=== PATIENT | female | born 1990 | race Caucasian/White ===

== ENCOUNTER 2021-06-23 14:07 | Outpatient (CLI) | payer MEDICAID, SELFPAY ==
--- NOTE | 2021-06-23 14:16 | MM_ITS ---
WS: [id number] BILATERAL DIGITAL DIAGNOSTIC MAMMOGRAM MAMMOGRAPHY WITH CAD CLINICAL INFORMATION: BREAST PAIN COMPARISON: None. TECHNIQUE: Bilateral CC, MLO, and ML views. FINDINGS: The breasts are composed of heterogeneous fibroglandular density, which can limit the detection of sm all underlying mass lesions. 1.6 x 0.8 cm ovoid asymmetry upper left breast only seen on the ML view. This this appears to compress out on the spot compression views. Right breast is unremarkable. Ultra sound is pending. ULTRASOUND BREAST BILATERAL TECHNIQUE: Ultrasound bilateral breast focused area of concern. CLINICAL INFORMATION: BREAST PAIN COMPARISON: None. FINDINGS: Ultrasound bilateral breasts. Ultrasound right breast at the 9 to 11:00 position. Ultrasound right ax illa. Ultrasound left breast at the 1 to 3:00 position and patient directed area of pain. Ultrasound left axilla. A few normal-appearing and normal-sized lymph nodes in both axillae with a benign appearance. 1.4 x 0.9 x 0.6 cm hypoechoic lesion at the 1:00 position 4 cm from the nipple in the area of patient concern. This has a lobulated appearance and appears solid. This most likely corresponds to the ovoi d asymmetry on the mammogram and corresponds to area of patient concern. This is nonspecific and jose mmend ultrasound-guided biopsy in further evaluation. No internal vascularity. MM/[place] [id number] IMPRESSION: BI-RADS: 4-Suspicious Finding-Biopsy Should Be Considered FOLLOW UP: US Guided Biopsy Recommended RECOMMEND ULTRASOUND-GUIDED BIOPSY OF THE LEFT BREAST LESION AT THE 1:00 POSITI ON.
== END 2021-06-23 14:08 | disposition home or self-care (01) ==
LOC: RADSHAW 14:13
PROVIDERS: PCP Nurse Practitioner; Visit Provider Family Medicine
DX: N64.4 Mastodynia (principal); N63.21 Unspecified lump in the left breast, upper outer quadrant
CPT/HCPCS: 76642; 77066

== ENCOUNTER 2021-07-23 13:36 | Outpatient (CLI) | payer MEDICAID, SELFPAY ==
--- NOTE | 2021-07-23 13:44 | US_ITS ---
WS: [id number] ULTRASOUND-GUIDED LEFT BREAST BIOPSY CLINICAL INFORMATION: ABNORMAL MAMMO OF LEFT BREAST FINDINGS: The procedure including risks, benefits, and complications were discussed with the patient who agreed to proceed. Using sterile technique patient was prepped and draped in the usual sterile fashion. Aft er 1% lidocaine utilizing real-time ultrasound guidance 5 14-gauge cores were obtained of the LEFT br east lesion at the 1 o'clock position 4 cm from the nipple. Patient declined biopsy marker. No biopsy clip was placed. No immediate complications. Pathology demonstrates A. Breast, left, 10 o'clock, ultrasound-guided biopsy: -Fibroglandular tissue with tubular adenosis. -Stromal sclerosis. -No malignancy identified US/[id number] IMPRESSION: 1. Uncomplicated ultrasound-guided LEFT breast biopsy. 2. The pathology demonstrates fibroglandular tissue with tubular adenosis and stromal sclerosis. No malignancy identified. BI-RADS: 2-Benign FOLLOW UP: 6 Month Follow-up Recommend 6 month follow-up LEFT breast diagnostic mammography and ultrasound p ostbiopsy.
== END 2021-07-23 13:37 | disposition home or self-care (01) ==
LOC: RAD 13:38
PROVIDERS: PCP Family Medicine; Visit Provider Family Medicine
DX: R92.8 Other abnormal and inconclusive findings on diagnostic imaging of breast (principal); N63.21 Unspecified lump in the left breast, upper outer quadrant
CPT/HCPCS: 19083; 88305

== ENCOUNTER 2022-11-05 13:38 | Emergency (ER) | payer MEDICAID, SELFPAY ==
[2022-11-05 13:49] VITALS: BP 134/81; PULSE 118; RESP 18; TEMP 36.8; O2SAT 100; BMI 28.1
--- NOTE | 2022-11-05 14:17 | CTR_ITS ---
PROCEDURE INFORMATION: Exam: CT Head Without Contrast Exam date and time: 11/05/2022 2:49 PM Age: 32 years old Clinical indication: Weakness, extremity; Left; Additional info: Weakness left upper extremity TECHNIQUE: Imaging protocol: Computed tomography of the head without contrast. Axial, coronal and sagittal reformatted images were created and reviewed. Radiation optimization: All CT scans at this facility use at least one of these dose optimization techniques: automated exposure control; mA and/or kV adjustment per patient size (includes targeted exams where dose is matched to clinical indication); or iterative reconstruction. REPORTING DATA: Count of CT and Cardiac NM exams in prior 12 months: This patient has received 0 known CTs and 0 known cardiac nuclear medicine studies in the 12 months prior to the current study. COMPARISON: No relevant prior studies available. RADIATION DOSE METRICS: Total DLP (mGy-cm): 1098.58 FINDINGS: Brain: No CT evidence of acute intracranial hemorrhage or acute territorial infarction. No significant mass effect or midline shift. Basal cisterns patent. Cerebral ventricles: Normal in size and configuration. Paranasal sinuses: Mild mucosal thickening of the ethmoid air cells and paranasal sinuses. No air-fluid levels. Mastoid air cells: Grossly unremarkable. Bones/joints: No acute osseous abnormality. Soft tissues: Grossly unremarkable. CT/CT head wo con* [id number] IMPRESSION: 1. No CT evidence of acute intracranial pathology. 2. Additional findings, as above.
--- NOTE | 2022-11-05 14:17 | ECG_ITS ---
[facility] Test Date: 2022-11-05 Pat Name: Teresa Garcia Department: Room: Gender: Female Cvor Nurse: : 1990 Requested By: Jo King Order Number: [id number] Perfecto MD: Trent Naranjo M.D. Measurements Intervals [place] Rate: 111 P: 26 ME: 100 QRS: 46 QRSD: 90 T: 21 QT: 332 QTc: 453 Interpretive Statements SINUS TACHYCARDIA WITH SHORT ME INTERVAL No previous ECG available for comparison Electronically Signed On 11-06-2022 8:02:22 CDT by Trent Naranjo M.D. [id number]
[2022-11-05 14:33] VITALS: BP 134/81; PULSE 108; O2SAT 98
[2022-11-05 14:42] LABS: Basophils # 0.1 10^3/uL (0.0-0.1); Basophils % 0.7 %; Eosinophils # 0.2 10^3/uL (0.0-0.8); Eosinophils % 1.2 %; Hematocrit 37.7 % (37.0-47.0); Lymphocytes # 1.6 10^3/uL (0.8-4.8); Lymphocytes % 12.9 %; Mean Corpuscular HGB Conc 34.5 g/dL (30.0-36.0); Mean Corpuscular Hemoglobin 31.4 pg (28.0-34.0); Mean Corpuscular Volume 91.1 fl (81-99); Mean Platelet Volume 9.3 fL (7.4-10.4); Monocytes # 0.8 10^3/uL (0.2-0.9); Monocytes % 6.1 %; Neutrophils # 9.63 10^3/uL (1.8-7.7); Neutrophils % 78.9 %; Nucleated Red Blood Cells % 0 %; Platelet Count 282 10^3/cmm (130-400); Red Blood Count 4.14 10^6/uL (4.1-5.3); Red Cell Distribution Width 12.2 % (12.1-15.1); White Blood Count 12.2 10^3/uL (4.0-10.0)
--- NOTE | 2022-11-05 14:52 | W.ED.EXTPRO ---
HPI - Extremity Problem General: Chief complaint: Extremity Injury, Upper Stated complaint: Left arm numbness and tingling, dizziness Time Seen by Provider: 11/05/22 13:58 Source: patient Mode of arrival: ambulatory Limitations: no limitations History of Present Illness: This presents to the ER with left upper extremity numbness and tingling that started around 10 AM this morning. Patient woke up around 9 AM at which time she was completely fine. Somewhere around 10 AM, she started noticing numbness and tingling involving the whole left upper extremity. There is also some associated weakness. Patient denies injury or neck pain. She has no fever, nausea, vomiting, chest pain, shortness of breath or any other pertinent systemic symptoms. She has never experienced these kind of symptoms before. Associated symptoms: Deny chest pain Review of Systems Const: Denies: chills, body aches or change in appetite Eyes: Denies: change in vision or eye discharge ENMT: Denies: throat pain or dental pain Card: Denies: chest pain or lightheadedness GI: Denies: diarrhea : Denies: dysuria Musc: Denies: neck pain or back pain Neuro: Reports: weakness in extremities (Left upper extremity) and other (Numbness and tingling left upper extremity); Denies: headache(s) Psych: Denies: depression Ramses/Lymph: Denies: easy bruising All/Imm: Denies: urticaria, tongue swelling or facial swelling [facility] ED PFSH: Medical History (Updated 11/05/22 @ 16:43 by Jo Frank MD) Epigastric abdominal pain Heartburn symptom Physical Exam Const: COMMON NORMALS: no acute distress, patient oriented x3, no limitations and alert HENMT: COMMON NORMALS: normocephalic HEAD & SCALP: normocephalic Eye: COMMON NORMALS: EOMs intact bilaterally Neck/C-Spine: COMMON NORMALS: full ROM and supple Chest: COMMONS NORMALS: normal inspection of the chest Resp: COMMON NORMALS: normal respiratory effort, No retractions, No use of accessory muscles and clear to auscultation bilaterally AUSCULTATION: clear to auscultation bilaterally Cardio: COMMON NORMALS: regular rate, regular rhythm and No murmurs present (Cardio) RATE: regular rate RHYTHM: regular rhythm GI: COMMON NORMALS: Normal to inspection, nondistended, normoactive bowel sounds present and non-tender : COMMON NORMALS: Yes no CVA tenderness BLADDER/KIDNEY EXAM: Yes no CVA tenderness Back/Pelvis: COMMON NORMALS: no CVA tenderness and no thoracic nor lumbar tenderness Extremity: GENERAL: Yes normal exam except as noted Neuro: COMMON NORMALS: patient oriented x3 and moves all extremities SENSORIUM/ORIENTATION: Yes alert SENSORY EXAM: Yes extremities (Diminished sensation left upper extremity) MOTOR EXAM: Other motor observations present (Strength is 4/5 in left upper extremity) Psych: COMMON NORMALS: mental status grossly normal and cooperative Course Reevaluation(s): Reevaluation #1: On reevaluation, patient stated that the strength on the left upper extremity was beginning to come back. The numbness and tingling has also improved but has not completely resolved. I made her aware of my discussion with the neurologist and his recommendation to admit her for further work-up. Patient discussed with family members who were in the room and they collectively decided to go home. She was made aware of the risks involved with leaving the ER prior to completion of work-up. Patient understands the risk and decided to sign out AGAINST MEDICAL ADVICE. She was advised to return if she changes her mind. Time: 16:29 Reevaluation #2: RN informed me that patient left the ER without notifying anyone. Consultations: Consultation #1: Case discussed with Dr. Hansen with the stroke team at [facility]. He notes that patient is outside the window for tPA or thrombectomy. He recommends admission and further work-up in this facility. He recommends getting an MRI brain with and without contrast, MRI cervical spine with and without contrast, MRA head and neck with contrast. He also recommends starting patient on aspirin 325 mg daily, Lipitor 80 mg daily and getting a 2D echo. Time: 15:00 Vital Signs: Vital signs: Vital Signs Temperature 98.2 F 11/05/22 13:49 Pulse Rate 106 H 11/05/22 15:15 Respiratory Rate 15 11/05/22 15:15 Blood Pressure 120/77 11/05/22 15:15 Pulse Oximetry 98 11/05/22 15:15 Oxygen Delivery Me thod Room Air 11/05/22 15:15 MDM - Extremity (Nontraumatic) Medical Decision Making Medical decision making: This 32-year-old female presents to the ER with numbness in the left upper extremity that started around 10 AM. It is associated with weakness. Besides 4 out of 5 strength and diminished sensation in the left upper extremity, rest of the neuro exam is unremarkable. CT brain is negative for any acute intracranial process. After discussing with the neurologist on-call, he recommended admitting patient for further evaluation and management. On reevaluating patient, she noted that the tingling and weakness had improved. After making her aware of the neurologist recommendation, patient did not want to be admitted. She left AGAINST MEDICAL ADVICE. Lab Data 11/05/22 14:30 11/05/22 14:[address] 11/05/22 14:17 IMPRESSION: 1. No CT evidence of acute intracranial pathology. 2. Additional findings, as above. Laboratory Results WBC 12.2 10^3/uL (4.0-10.0) H 11/05/22 14:30 RBC 4.14 10^6/uL (4.1-5.3) 11/05/22 14:30 Hgb 13.0 g/dL (11.5-15.3) 11/05/22 14:30 Hct 37.7 % (37.0-47.0) 11/05/22 14:30 MCV 91.1 fl (81-99) 11/05/22 14:30 MCH 31.4 pg (28.0-34.0) 11/05/22 14:30 MCHC 34.5 g/dL (30.0-36.0) 11/05/22 14:30 RDW 12.2 % (12.1-15.1) 11/05/22 14:30 Plt Count 282 10^3/cmm (130-400) 11/05/22 14:30 MPV 9.3 fL (7.4-10.4) 11/05/22 14:30 Neut % (Auto) 78.9 % 11/05/22 14:30 Lymph % (Auto) 12.9 % 11/05/22 14:30 [place] % (Auto) 6.1 % 11/05/22 14:30 Eos % (Auto) 1.2 % 11/05/22 14:30 Baso % (Auto) 0.7 % 11/05/22 14:30 Neut # (Auto) 9.63 10^3/uL (1.8-7.7) H 11/05/22 14:30 Lymph # (Auto) 1.6 10^3/uL (0.8-4.8) 11/05/22 14:30 [place] # (Auto) 0.8 10^3/uL (0.2-0.9) 11/05/22 14:30 Eos # (Auto) 0.2 10^3/uL (0.0-0.8) 11/05/22 14:30 Baso # (Auto) 0.1 10^3/uL (0.0-0.1) 11/05/22 14:30 Nucleated RBC % (auto) 0 % 11/05/22 14:30 Nucleated RBCs # 0.0 /100WBC 11/05/22 14:30 PT 12.80 SECONDS (12.1-14.9) 11/05/22 14:30 INR 0.94 (0.8-1.2) 11/05/22 14:30 Sodium 133 mmol/L (136-145) L 11/05/22 14:30 Potassium 3.9 mmol/L (3.5-5.1) 11/05/22 14:30 Chloride 98 mmol/L (98-107) 11/05/22 14:30 Carbon Dioxide 22 mmol/L (22-29) 11/05/22 14:30 Anion Gap 16.9 (5-19) 11/05/22 14:30 BUN 8 mg/dL (6-20) 11/05/22 14:30 Creatinine 0.7 mg/dL (0.5-0.9) 11/05/22 14:30 GFR Calculation 96.4 mL/min (90-130) 11/05/22 14:30 Glucose 92 mg/dL (65-115) 11/05/22 14:30 Calculated Osmolality 274 mOsm/kg (285-295) L 11/05/22 14:30 Calcium 8.5 mg/dL (8.5-10.5) 11/05/22 14:30 Total Bilirubin 0.5 mg/dL (0.15-1.2) 11/05/22 14:30 AST 17 U/L (0-32) 11/05/22 14:30 ALT 16 U/L (0-33) 11/05/22 14:30 Alkaline Phosphatase 46 U/L (35-105) 11/05/22 14:30 Total Protein 6.8 g/dL (6.6-8.7) 11/05/22 14:30 Albumin 4.3 g/dL (3.5-5.2) 11/05/22 14:30 Globulin 2.5 g/dL (1.3-4.6) 11/05/22 14:30 EKG Data EKG 1: Interpretation: 1431 hrs.: Sinus tachycardia, rate of 111, normal axis, normal intervals, normal QRS, no STEMI. Discharge Plan Discharge Patient Disposition: Left Against Medical Advice Clinical Impression: Left upper extremity numbness Condition: Stable Prescriptions: No Action pantoprazole 40 mg tablet,delayed release (DR/EC) 40 mg PO DAILY PRN (Reason: acid reflux) Qty: 30 0RF Referrals: Shelby Gomez MD [Primary Care Provider] - Coding Level of Care Code ED Experimental Assembler for Chg Shital
[2022-11-05 14:53] LABS: INR 0.94 (0.8-1.2)
[2022-11-05 15:03] LABS: Alanine Aminotransferase 16 U/L (0-33); Albumin Level 4.3 g/dL (3.5-5.2); Alkaline Phosphatase 46 U/L (35-105); Anion Gap 16.9 (5-19); Aspartate Amino Transferase 17 U/L (0-32); Blood Urea Nitrogen 8 mg/dL (6-20); Calcium 8.5 mg/dL (8.5-10.5); Carbon Dioxide 22 mmol/L (22-29); Chloride 98 mmol/L (98-107); Globulin 2.5 g/dL (1.3-4.6); Glomerular Filtration Rate 96.4 mL/min (90-130); Glucose 92 mg/dL (65-115); Osmolality Calculated 274 mOsm/kg (285-295); Potassium 3.9 mmol/L (3.5-5.1); Sodium 133 mmol/L (136-145); Total Bilirubin 0.5 mg/dL (0.15-1.2); Total Protein 6.8 g/dL (6.6-8.7)
[2022-11-05 15:15] VITALS: BP 120/77; PULSE 106; RESP 15; O2SAT 98
[2022-11-05 16:50] VITALS: BP 120/77; PULSE 106; RESP 15; O2SAT 98
== END 2022-11-05 16:51 | disposition left against medical advice (07) ==
PROVIDERS: Emergency Provider Family Medicine; PCP Family Medicine
DX: R20.0 Anesthesia of skin (principal); Z53.21 Procedure and treatment not carried out due to patient leaving prior to being seen by health care provider
CPT/HCPCS: 36415; 70450; 80053; 85025; 85610; 93005; 99285

== ENCOUNTER → 2023-06-02 14:32 | Outpatient (BNVA) | payer MEDICAID, SELFPAY | PROVIDERS: PCP Family Medicine; Visit Provider Nurse Practitioner Family | DX: R30.0 Dysuria (principal) | CPT/HCPCS: 81000 ==

== ENCOUNTER 2023-10-09 11:40 | Outpatient (CLI) | payer MEDICAID, SELFPAY ==
[2023-10-09 11:40] VITALS: BMI 31.4
[2023-10-09 11:58] VITALS: BP 107/59; PULSE 97
[2023-10-09 12:18] VITALS: BP 102/59; PULSE 88
== END 2023-10-09 12:32 | disposition home or self-care (01) ==
LOC: OPOB 11:44 → OBGYN 11:45
PROVIDERS: PCP Family Medicine; Visit Provider Family Medicine
DX: O46.90 Antepartum hemorrhage, unspecified, unspecified trimester (principal); Z3A.00 Weeks of gestation of pregnancy not specified
CPT/HCPCS: 99211

== ENCOUNTER → 2023-10-20 08:26 | Outpatient (BNVA) | payer MEDICAID, SELFPAY | PROVIDERS: PCP Family Medicine; Visit Provider Obstetrics & Gynecology | DX: Z34.90 Encounter for supervision of normal pregnancy, unspecified, unspecified trimester (principal) | CPT/HCPCS: 81000; 82950 ==

== ENCOUNTER → 2023-12-08 07:50 | Outpatient (BNVA) | payer MEDICAID, SELFPAY | PROVIDERS: PCP Family Medicine; Visit Provider Nurse Practitioner Women's Health | DX: Z34.83 Encounter for supervision of other normal pregnancy, third trimester (principal) | CPT/HCPCS: 81000; 85025 ==

== ENCOUNTER 2023-12-25 07:00 | Outpatient (CLI) | payer MEDICAID, SELFPAY ==
[2023-12-25] VITALS (8 sets, daily range): BP systolic 113–123; BP diastolic 64–79; PULSE 75–97; BMI 32.5
[2023-12-25] MEDS: NIFEdipine ER (24 hr) 30 mg Tablet PO (09:00)
== END 2023-12-25 09:38 | disposition home or self-care (01) ==
LOC: OPOB 07:04 → OBGYN 07:08
PROVIDERS: PCP Family Medicine; Visit Provider Obstetrics & Gynecology
DX: O26.899 Other specified pregnancy related conditions, unspecified trimester (principal); Z3A.00 Weeks of gestation of pregnancy not specified; R10.9 Unspecified abdominal pain

== ENCOUNTER 2023-12-25 14:08 | Outpatient (CLI) | payer MEDICAID, SELFPAY ==
[2023-12-25] VITALS (9 sets, daily range): BP systolic 104–141; BP diastolic 60–83; PULSE 82–121; BMI 32.8
[2023-12-25] MEDS: terbutaline 1 mg/mL INJ 0.25 MG SUBCUT (15:49)
[2023-12-25] MEDS: acetaminophen 325 mg Tablet 1000 MG PO (15:50)
[2023-12-25 16:54] LABS: Add Urine Microscopic? YES; Bilirubin Urine Neg (Negative); Blood Urine 2+ (Negative); Glucose Urine UA Norm (Normal); Ketones Urine Negative (Negative); Leukocyte Esterase Urine Trace (Negative); Nitrate Urine Negative (Negative); Protein Urine Neg (Negative); Urine Appearance Slightly Cloudy (CLEAR); Urine Color Yellow (Yellow); Urobilinogen Urine Norm (Negative); pH Urine 6.5 (5-7)
[2023-12-25 16:55] LABS: Add Urine Culture? No; Bacteria Urine TRACE /hpf; RBC Urine 0-4 /hpf (0-2); Squamous Epithelial Cell Urine 0-4 /hpf (0-5); WBC Urine 0-4 /hpf (0-5)
== END 2023-12-25 17:18 ==
LOC: OPOB 14:10 → OBGYN 14:13
PROVIDERS: PCP Family Medicine; Visit Provider Obstetrics & Gynecology
DX: O26.899 Other specified pregnancy related conditions, unspecified trimester (principal); Z3A.00 Weeks of gestation of pregnancy not specified; R10.9 Unspecified abdominal pain
CPT/HCPCS: 59025; 81001; 96372; 99211; J3105

== ENCOUNTER 2023-12-26 05:29 | Inpatient (IN) | payer MEDICAID, SELFPAY ==
[2023-12-25] VITALS (13 sets, daily range): BP systolic 101–129; BP diastolic 56–74; PULSE 76–102
[2023-12-26] VITALS (32 sets, daily range): BP systolic 93–182; BP diastolic 51–135; PULSE 72–130; RESP 16–18; TEMP 35.4–36.8; O2SAT 97–99; BMI 32.8
[2023-12-26] MEDS: acetaminophen 500 mg Tablet 1000 MG PO (00:13)
[2023-12-26] MEDS: lactated ringers 1,000 ML 999 ML IV ×2 (01:50→02:52)
--- NOTE | 2023-12-26 02:12 | PM.OBGYHP ---
Providers/Chief Complaint Admitting Physician: Evan Morales MD Primary SCRIPT DEVELOPER: David Snow MD Primary Care Provider: Shelby Gomez MD Chief Complaint: contractions HPI SCRIPT DEVELOPER History of Present Illness Teresa Garcia is a 33 year old female 33 y.o. EDC January 16, 2024 At 37 w 0 d Presents to L&D c/o painful uterine contractions No bleeding, fluid leakage + active movements No complications POBHx: x two, uncomplicated PMHx: none PSHx: appendectomy Meds: vitamins All: iodine contrast Medications/Allergies Home Medications Medication Instructions Recorded Confirmed Last Taken Type prenat.vits,cyndi,kvk-jxxi-gfald 1 tab PO DAILY 10/09/23 12/22/23 Unknown History cetirizine 10 mg capsule (Zyrtec) 10 mg PO DAILY PRN 10/20/23 12/22/23 Unknown History Allergies Allergy/AdvReac Type Severity Reaction Status Date / Time iodine contrast Allergy swell up Uncoded 12/22/23 07:35 PFSH SCRIPT DEVELOPER PFSH: Medical History (Updated 12/26/23 @ 02:15 by Evan Morales MD) No pertinent past medical history neghx: htn,dm,thyroid,dvt/pe PCP: Dr. Gomez Heartburn symptom Epigastric abdominal pain Surgical History (Updated 12/08/23 @ 08:43 by Eloina Medrano APN, SAIMA) Hx of appendectomy Family History Grandmother Ovarian cancer maternal -- in her 60s Other Hypertension Hyperthyroidism Denies family history of Colon cancer Prostate cancer Diabetes Heart disease Breast cancer Uterine cancer Thyroid disease Stroke Social History Smoking and tobacco/nicotine status: never used tobacco/nicotine History History History 3 Term 2 0 Miscarriages/Ectopic 0 Living Children 2 Care JEROME Calculator Estimated Delivery Date Method Current WG Current Estimate 01/16/24 Ultrasound #1 37w 0d Specific Issues/Plans TRANSFER OF CARE AT 27 WEEKS Vitals/I&O/Wt Last Vital Signs Pulse 94 12/26/23 00:54 BP 112/62 12/26/23 00:54 Physical Exam Narrative: Weight 205 lbs; 5?7? VS normal General: discomfort due to uterine contractions Awake, alert Lungs: clear Cor: RRR Abd: nontender Cervix: 3 cm / 90 / -2 / mid Ext: normal External monitor: regular uterine contractions heart tracing: good variability, + accelerations Results Labs OB ([facility]): Blood Type Pending 12/26/23 Antibody Screen Pending 12/26/23 Hct 38.0 % (36-47) 12/08/23 Hgb 12.60 g/dL (11.27-16.99) 12/08/23 Rho(D) Type Pending 12/26/23 Plt Count 350 10^3/cmm (157-399) 12/08/23 Gest Glucose Tolerance 114 mg/dL (70-139) 10/20/23 A&P Assessment and plan (1) Supervision of normal in third trimester: 37 w 0 d Active labor Cervix progressed from 1 cm / long to 3 cm / 90% Plan admit Expectant management h/o x two Qualifiers: Normal : other normal Qualified Code(s): Z34.83 - Encounter for supervision of other normal , third trimester (2) Active labor: Attestations Medical Necessity Statement*: patient at 37 w 0 d, with painful uterine contractions, in active labor Coding Level of Care Code Acute Code for Chg Fwd Diagnoses Encounter for supervision of other normal in third trimester Z34.83 Normal : other normal Active labor Time Spent (min) 60
[2023-12-26 02:17] LABS: Basophils # 0.1 10^3/uL (0.0-0.1); Basophils % 0.3 %; Eosinophils # 0.1 10^3/uL (0.0-0.8); Eosinophils % 0.4 %; Hematocrit 41.6 % (36-47); Lymphocytes # 2.6 10^3/uL (0.8-4.8); Lymphocytes % 11.5 %; Mean Corpuscular HGB Conc 34.6 g/dL (30-55); Mean Corpuscular Hemoglobin 30.1 pg (27-33); Mean Corpuscular Volume 86.8 fl (85-98); Mean Platelet Volume 10.7 fL (7.4-10.4); Monocytes # 0.9 10^3/uL (0.2-0.9); Monocytes % 3.9 %; Neutrophils # 18.52 10^3/uL (1.8-7.7); Neutrophils % 83.4 %; Nucleated Red Blood Cells % 0 %; Platelet Count 355 10^3/cmm (157-399); Red Blood Count 4.79 10^6/uL (3.85-5.65); Red Cell Distribution Width 13.6 % (12.1-15.1); White Blood Count 22.17 10^3/uL (3.29-11.43)
--- NOTE | 2023-12-26 02:58 | P.PN_ITS ---
PROPERTY MANAGEMENT SUPERVISOR Subjective 2 Subjective: Interval history: fetus reassuring having painful uterine contractions cervix: 6 cm / -2 getting epidural Labor: Monitor Mode: External Contraction Pattern: Occasional Vitals/I&O/Wt Last Vital Signs Pulse 104 H 12/26/23 02:53 BP 119/92 12/26/23 02:52 Pulse Ox 98 12/26/23 02:53 Data 12/26/23 02:09 A&P Assessment and plan (1) Active labor: Attestations 2 Medical Necessity Statement*: patient at 37 w 0 d, admitted with active labor Coding Level of Care Code Acute Code for Chg Fwd Diagnoses Active labor Time Spent (min) 20
[2023-12-26] MEDS: ROPivacaine syringe 100 MG/50 ML SYRINGE 13 MG EPIDURAL (03:04)
--- NOTE | 2023-12-26 03:11 | ANES.PREANE2 ---
Pre-Anesthetic Assessment Height/Weight: Height 1.7 m Pulse BP Pulse Ox 97 120/77 99 12/26/23 03:07 12/26/23 03:07 12/26/23 02:58 Epidural Familial anesthetic complications: None Was Beta Krista taken within 24 hours: N/A Was Clonidine taken within 24 hours: N/A Social No alcohol and No tobacco Exam alert, oriented x 3, clear to auscultation bilaterally and regular rate & rhythm Airway Submandibular: within normal limits Cervical ROM: within normal limits Mallampati: Class II Dentition: full History/ROS No significant history except as noted and No significant complaints Pulmonary None reported CV/HEM None reported None reported Hepatic None reported GI Gastroesophageal Reflux Disease Metabolic None reported Musc/skel None reported Neuropsych Anxiety Anesthetic Plan ASA status: 2 Anesthesia: Anesthesia Evaluation and Regional (specify below) (Epidural) Risk of > 500 ml blood loss (7ml/kg in children): Yes, adequate IV access and fluids planned Medications/Allergies Home Medications Medication Instructions Recorded Confirmed Last Taken Type prenat.vits,cyndi,tdz-eesd-abtlj 1 tab PO DAILY 10/09/23 12/22/23 Unknown History cetirizine 10 mg capsule (Zyrtec) 10 mg PO DAILY PRN 10/20/23 12/22/23 Unknown History Allergies Allergy/AdvReac Type Severity Reaction Status Date / Time iodine contrast Allergy swell up Uncoded 12/22/23 07:35 [facility] Anesthesia Medical History (Updated 12/26/23 @ 02:15 by Evan Morales MD) No pertinent past medical history neghx: htn,dm,thyroid,dvt/pe PCP: Dr. Gomez Heartburn symptom Epigastric abdominal pain Surgical History (Updated 12/08/23 @ 08:43 by Eloina Medrano APN, SAIMA) Hx of appendectomy Family History Grandmother Ovarian cancer maternal -- in her 60s Other Hypertension Hyperthyroidism Denies family history of Colon cancer Prostate cancer Diabetes Heart disease Breast cancer Uterine cancer Thyroid disease Stroke Social History Smoking and tobacco/nicotine status: never used tobacco/nicotine Data Anesthesia 12/26/23 02:09 Short CBC 12/26/23 Range/Units 02:09 WBC 22.17 H (3.29-11.43) 10^3/uL Hgb 14.40 (11.27-16.99) g/dL Hct 41.6 (36-47) % MCV 86.8 (85-98) fl Plt Count 355 (157-399) 10^3/cmm Neut % (Auto) 83.4 % Neut # (Auto) 18.52 H (1.8-7.7) 10^3/uL Blood Bank 12/26/23 02:09 Blood Type B Positive Rho(D) Type Rh positive Antibody Screen Negative Cardiac Studies: No Data to Display
--- NOTE | 2023-12-26 03:13 | ANES.PROC ---
Anesthesia Procedures Procedure/Date: 12/26/23 Epidural: Time Out Performed: Yes Consents Signed: Procedure Consent and NPO Consent Consent: requested by attending/covering physician, from patient, risks and benefits reviewed and patient agrees to proceed Lumbar Level: L3-L4 Epidural position: sitting Epidural procedure: sterile prep of area (betadine), 1% lidocaine to numb the area (3 mLs), neg for paresthesia, test dose given, 1.5% xylocaine 1:200k epi (3 mLs/ 2 mLs), 0.2% Ropivacaine bolus ml (5 mLs), placed PCEA, no systemic response, sterile dressing applied, L.U.D. no apparent complications and 0.2% Ropiavacaine @ mls/hr (13) Additional Comments: JERAMIE 5cm, catheter threaded to 11cm. Negative CSF aspiration before and after test dose and start of infusion. LOGGING OPERATIONS INSPECTOR button within reach and patient educated on use.
[2023-12-26] MEDS: oxytocin 30 UNIT/500 ML BAG 600 UNIT IV (04:30)
--- NOTE | 2023-12-26 05:15 | PM.OBGYPN ---
FIELD OPERATIONS TECHNICIAN Subjective Subjective: Interval history: DELIVERY NOTE , vigorous male infant OP + nuchal cord, reduced Cord gases and blood obtained Normal placenta and cord 1 cm excess vaginal tissue from previous delivery removed Second-degree perineal laceration repaired EBL: 300 cc No complications Labor: Monitor Mode: External Contraction Pattern: Occasional Vitals/I&O/Wt Last Vital Signs Temp 95.7 F L 12/26/23 03:26 Pulse 72 12/26/23 04:52 BP 182/135 12/26/23 04:52 Pulse Ox 99 12/26/23 02:58 Data 12/26/23 02:09 A&P Assessment and plan (1) (spontaneous vaginal delivery): Attestations Medical Necessity Statement*: patient at 37 w 0 d, s/p spontaneous vaginal delivery Coding Level of Care Code Acute Code for Chg Fwd Diagnoses (spontaneous vaginal delivery) O80 Time Spent (min) 60
--- NOTE | 2023-12-26 05:17 | PM.DELIVERY ---
Delivery Note: Date of delivery: December 26, 2023 Pre-delivery diagnoses: 37 w 0 d active labor Post-delivery diagnoses: 37 w 0 d active labor spontaneous vaginal delivery second-degree perineal laceration repaired Procedure: vaginal delivery repair of second-degree perineal laceration Op report anesthesia: Epidural Delivering Physician: Evan Morales MD Estimated blood loss (mL): 300 Findings: , vigorous male infant OP + nuchal cord, reduced Cord gases and blood obtained Normal placenta and cord 1 cm excess vaginal tissue from previous delivery removed Second-degree perineal laceration repaired EBL: 300 cc No complications Pre-Delivery Course: normal labor course Delivery: vaginal Post-Delivery Status: good History History History 3 Term 2 0 Miscarriages/Ectopic 0 Living Children 2 A&P Assessment and plan (1) (spontaneous vaginal delivery): Coding Level of Care Code Acute Code for Chg Fwd Diagnoses (spontaneous vaginal delivery) O80 Time Spent (min) 60
[2023-12-26] MEDS: ibuprofen 800 mg tablet PO (15:24)
[2023-12-26 15:31] LABS: Hematocrit 34.6 % (36-47); Mean Corpuscular HGB Conc 34.4 g/dL (30-55); Mean Corpuscular Hemoglobin 30.6 pg (27-33); Mean Corpuscular Volume 88.9 fl (85-98); Mean Platelet Volume 10.5 fL (7.4-10.4); Platelet Count 312 10^3/cmm (157-399); Red Blood Count 3.89 10^6/uL (3.85-5.65); Red Cell Distribution Width 13.8 % (12.1-15.1); White Blood Count 18.41 10^3/uL (3.29-11.43)
[2023-12-27 04:54] VITALS: BP 104/66; PULSE 83; RESP 16; TEMP 36.8; O2SAT 96
--- NOTE | 2023-12-27 08:00 | ANE.PACU2 ---
Inpatient post-anesthesia follow up: Airway intact: Yes Vital signs: Temperature 98.1 F Pulse Rate 59 Respiratory Rate 16 Blood Pressure 101/64 Pulse Oximetry 96 Oxygen Delivery Me thod Room Air Oxygen Flow Rate Fraction of Inspir ed Oxygen Hydration adequate: Yes Nausea and vomiting: No Pain level: 1 Mental status: Baseline Epidural Start/End: Epidural Start Date: 12/26/23 Epidural Start Time: 02:44 Epidural End Date: 12/26/23 Epidural End Time: 05:17
[2023-12-27 11:26] VITALS: BP 101/64; PULSE 59; RESP 16; TEMP 36.7
--- NOTE | 2023-12-27 12:50 | P.PN_ITS ---
PROCESSING SPECIALIST Subjective 2 Subjective: Interval history: no c/o no bleeding, pain eating, voiding, ambulating well caring for without any problems Labor: Station: +1 Amniotic Membrane Status: Ruptured Monitor Mode: External Contraction Pattern: Occasional Vitals/I&O/Wt Last Vital Signs Temp 98.1 F 12/27/23 11:26 Pulse 59 L 12/27/23 11:26 Resp 16 12/27/23 11:26 BP 101/64 12/27/23 11:26 Pulse Ox 96 12/27/23 04:54 O2 Del Method Room Air 12/27/23 04:54 Physical Exam 2 Narrative: afebrile, VS normal comfortable, awake, alert Abd: soft, nontender. fundus firm Ext: no edema; nontender Data 12/26/23 15:16 A&P Assessment and plan (1) (spontaneous vaginal delivery): PPD #1 doing well discharge to home today instructions and precautions given call/return if fever, chills, headache, blurry vision, nausea, vomiting, abdominal pain; vaginal bleeding or discharge; shortness of breath, chest pain, leg pains or swelling; inability to void, perineal pain or swelling; feelings of depression or mood changes; thoughts of suicide or harming others; inability to care for baby. f/u in 6 weeks or PRN Attestations 2 Medical Necessity Statement*: patient s/p vaginal delivery, plan to discharge to home today Coding Level of Care Code Acute Code for Chg Fwd Diagnoses (spontaneous vaginal delivery) O80 Time Spent (min) 20
--- NOTE | 2023-12-27 12:55 | PM.OBGYDC ---
Discharge Providers HYDROELECTRIC STATION OPERATOR Date of Admission: 12/26/23 05:29 Date of Discharge: 12/27/23 Attending Provider at Admission: Evan Morales MD Attending Provider at Discharge: Evan Morales MD Consults: none Primary HYDROELECTRIC STATION OPERATOR: David Snow MD Primary Care Provider: Shelby Gomez MD Diagnoses at Discharge Discharge Diagnosis (1) (spontaneous vaginal delivery): Details from hospital stay: 33 y.o. presented to L&D at 37 w 0 d with active labor patient progressed to vaginal delivery with repair of second-degree perineal laceration there were no complications patient was discharged to home on the first day Status: Acute Reason for Visit Reason for Visit: contractions Brief History: 33 y.o. at 37 w 0 d presented with painful uterine contractions Hospital Course Hospital Course 33 y.o. presented to L&D at 37 w 0 d with active labor patient progressed to vaginal delivery with repair of second-degree perineal laceration there were no complications patient was discharged to home on the first day Information Peripartum Data: Infant Delivery Method: Vaginal Laceration description: Perineal - 2nd Degree Episiotomy description: None complications: none Physical Exam Narrative: afebrile, VS normal comfortable, awake, alert Abd: soft, nontender. fundus firm Ext: no edema; nontender History History History 3 Term 2 0 Miscarriages/Ectopic 0 Living Children 2 Discharge Data Studies Completed and Pending Laboratory Results WBC 18.41 10^3/uL (3.29-11.43) H 12/26/23 15:16 RBC 3.89 10^6/uL (3.85-5.65) 12/26/23 15:16 Hgb 11.90 g/dL (11.27-16.99) 12/26/23 15:16 Hct 34.6 % (36-47) L 12/26/23 15:16 MCV 88.9 fl (85-98) 12/26/23 15:16 MCH 30.6 pg (27-33) 12/26/23 15:16 MCHC 34.4 g/dL (30-55) 12/26/23 15:16 RDW 13.8 % (12.1-15.1) 12/26/23 15:16 Plt Count 312 10^3/cmm (157-399) 12/26/23 15:16 MPV 10.5 fL (7.4-10.4) H 12/26/23 15:16 Neut % (Auto) 83.4 % 12/26/23 02:09 Lymph % (Auto) 11.5 % 12/26/23 02:09 [place] % (Auto) 3.9 % 12/26/23 02:09 Eos % (Auto) 0.4 % 12/26/23 02:09 Baso % (Auto) 0.3 % 12/26/23 02:09 Neut # (Auto) 18.52 10^3/uL (1.8-7.7) H 12/26/23 02:09 Lymph # (Auto) 2.6 10^3/uL (0.8-4.8) 12/26/23 02:09 [place] # (Auto) 0.9 10^3/uL (0.2-0.9) 12/26/23 02:09 Eos # (Auto) 0.1 10^3/uL (0.0-0.8) 12/26/23 02:09 Baso # (Auto) 0.1 10^3/uL (0.0-0.1) 12/26/23 02:09 Nucleated RBC % (auto) 0 % 12/26/23 02:09 Nucleated RBCs # 0.0 /100WBC 12/26/23 02:09 Blood Type B Positive 12/26/23 02:09 Rho(D) Type Rh positive 12/26/23 02:09 Antibody Screen Negative 12/26/23 02:09 Procedures Performed vaginal delivery repair of second-degree perineal laceration Vitals Last Vital Signs Temp 98.1 F 12/27/23 11:26 Pulse 59 L 12/27/23 11:26 Resp 16 12/27/23 11:26 BP 101/64 12/27/23 11:26 Pulse Ox 96 12/27/23 04:54 O2 Del Method Room Air 12/27/23 04:54 Results Labs OB ([facility]): Blood Type B Positive 12/26/23 Antibody Screen Negative 12/26/23 Hct 34.6 % (36-47) L 12/26/23 Hgb 11.90 g/dL (11.27-16.99) 12/26/23 Rho(D) Type Rh positive 12/26/23 Plt Count 312 10^3/cmm (157-399) 12/26/23 Gest Glucose Tolerance 114 mg/dL (70-139) 10/20/23 Discharge Plan Discharge Patient Disposition: Home Condition: Stable Prescriptions: Continued prenat.vits,cyndi,hei-awbh-yvebt Tablet 1 tab PO DAILY Discharge Orders: Discharge Order (Routine); Ordered 12/27/23 Ordered By: Evan Moralse Discharge Diet: Usual diet Discharge Activity: Increase activity as tolerated Patient Instructions: Depression (DC), Opioid Safety (DC), Preeclampsia and Eclampsia After Delivery (GEN), Hemorrhage (DC), OB Discharge Report, OB Food/Drug Interaction Guide, Opioid Safety, OB Home Care, OB Vaginal Deliveries - [facility], Abnormal Bleeding Discharge Attestations HYDROELECTRIC STATION OPERATOR Time Spent in Discharge Care*: less than 30 min Coding Level of Care Code Acute Code for Chg Fwd Diagnoses (spontaneous vaginal delivery) O80 Time Spent (min) 20
== END 2023-12-27 11:25 | disposition home or self-care (01) | DRG 807 ==
PROVIDERS: Admitting Provider Obstetrics & Gynecology; PCP Family Medicine; Visit Provider Obstetrics & Gynecology
DX: O69.81X0 Labor and delivery complicated by cord around neck, without compression, not applicable or unspecified (principal); Z37.0 Single live birth; Z3A.37 37 weeks gestation of pregnancy; O70.1 Second degree perineal laceration during delivery
CPT/HCPCS: 36415; 59025; 59409; 85025; 85027; 86850; 86900; 99211; J2590; J2795; J7120